=== PATIENT | female | born 1985 | race Caucasian/White ===

== ENCOUNTER 2024-12-21 09:37 | Emergency (ER) | payer BC, SELFPAY ==
[2024-12-21 09:46] VITALS: BP 116/71; PULSE 82; TEMP 36.7; O2SAT 99
--- NOTE | 2024-12-21 09:54 | CT_ITS ---
The [address] [address] Patient Name: DEEPIKA LANDRY MRN: [id number] date: 1985 Sex: F Assigned Patient Location: ED.MAIN Current Patient Location: ED.MAIN Accession/Order Number: [id number] Exam Date: 12/21/2024 10:40 Report Date: 12/21/2024 11:43 At the request of: UNIQUE CHAMBERS MD Procedure: CT lumbar spine wo con CT lumbar spine wo con 12/21/2024 10:51 AM History:Right lower back pain, pelvic pressure TECHNIQUE: Multi detector CT axial slices of the lumbar spine were obtained without IV contrast. Volumetric acquisition sagittal, coronal, and 3-D reconstructions were performed and reviewed on a separate workstation. CT was performed with one or more of the following dose reduction techniques: Automated exposure control, adjustment of the mA and/or kV according to patient size, or use of iterative reconstruction technique. COMPARISON: None FINDINGS: There is preservation of the vertebral body heights and intervertebral discs. There is a broad-based disc bulge at L5-S1 contributing to mild spinal canal stenosis. No fractures or dislocations are seen. The alignment of the lumbar spine is normal. The paraspinous soft tissues are within normal limits. The visualized lung parenchyma is unremarkable. The visualized abdominal and pelvic viscera is unremarkable. There is total left hip arthroplasty hardware. CT/CT lumbar spine wo con IMPRESSION: No acute bony abnormality or malalignment. There is a broad-based disc bulge at L5-S1 contributing to mild spinal canal stenosis. Impression dictated by: John Dick M.D. 12/21/2024 11:43 AM Dictation Location: [employer] Electronically authenticated by: [id number] Y Date: 12/21/2024 11:43
--- NOTE | 2024-12-21 09:54 | CT_ITS ---
The [address] [address] Patient Name: DEEPIKA LANDRY MRN: [id number] date: 1985 Sex: F Assigned Patient Location: ED.MAIN Current Patient Location: ED.MAIN Accession/Order Number: [id number] Exam Date: 12/21/2024 10:40 Report Date: 12/21/2024 11:47 At the request of: UNIQUE CHAMBERS MD Procedure: CT pelvis wo con CT pelvis wo con 12/21/2024 10:52 AM SIGNS AND SYMPTOMS: Low back pain and pelvic pressure TECHNIQUE: Multidetector ct axial images of the abdomen and pelvis were obtained without IV contrast. Multiplanar reformats were performed and reviewed to further define anatomy and possible pathology. CT was performed with one or more of the following dose reduction techniques: Automated exposure control, adjustment of the mA and/or kV according to patient size, or use of iterative reconstruction technique. COMPARISON: None. FINDINGS: Reproductive Organs: No pelvic masses. Ureters: Within normal limits. Bladder: Within normal limits. Bowel: Normal caliber. Mesenteric Lymph Nodes: No enlarged mesenteric lymph nodes. Peritoneum: No ascites or free air, no fluid collection. Vessels: Atherosclerotic changes within normal limits Retroperitoneum: Within normal limits. Abdominal Wall: Within normal limits. Bones: Limits total left hip arthroplasty hardware. The right hip is grossly intact. There is a broad-based disc bulge at L5-S1 contributing to mild spinal canal narrowing. CT/CT pelvis wo con IMPRESSION: No acute intra-abdominal pathology within the visualized pelvis. Mild degenerative changes are noted in the lower lumbar spine. There is uncomplicated total left hip are demonstrated. Impression dictated by: John Dick M.D. 12/21/2024 11:47 AM Dictation Location: [email or web address] Electronically authenticated by: [id number] Y Date: 12/21/2024 11:47
--- NOTE | 2024-12-21 09:56 | ED.GENADUL1 ---
HPI HPI - General Adult General Chief complaint: Back Pain/Injury Stated complaint: BACK PAIN Time Seen by Provider: 12/21/24 09:39 Source: patient Mode of arrival: Wheelchair Limitations: no limitations History of Present Illness HPI narrative: 39-year-old female presents for lower back pain. It is on the right lower part of her back and goes into her buttock but not below the buttock. No history of trauma. This began 2 days ago and she was at another hospital's emergency department yesterday. She states she had x-rays and blood and urine done and they were all negative and they sent her home with medication. He does not feel better and in fact he feels a bit worse. She points to the buttock area to indicate the area of most pain. 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 Related Data Previous Rx's ?Medication ?Instructions ?Recorded hydrocodone 5 mg-acetaminophen 325 1 tab PO Q6H PRN pain 5 days #20 12/21/24 mg tablet tabs prednisone 10 mg tablet See Rx Instructions .Route 12/21/24 .COMPLEX #30 tabs Allergies Allergy/AdvReac Type Severity Reaction Status Date / Time No Known Drug Allergies Allergy Verified 12/21/24 09:46 Opioid HPI Opioid Management Most Recent Opioid Data: Last Pain Scale 10 Today, 10:05 Last MAR Pain Assessment Today, 10:05 Review of Systems ROS Narrative A ten point review of systems is negative except as noted above. Exam Narrative Exam Narrative: Nurses note and vital signs reviewed General:The patient appears well and in no apparent distress.Patient is resting comfortably on cart. Skin:Warm, dry, no pallor noted.There is no rash noted. Head:Normocephalic, atraumatic Eye: Normal conjunctiva, no drainage Ears, Nose, Mouth, and Throat: oral mucosa is moist. Nares patent. Cardiovascular:Regular Rate and Rhythm Respiratory:Patient is in no distress, no accessory muscle use, lungs are clear to auscultation, no wheezing, rales or rhonchi Back: No bruise or rash or focal area of tenderness to palpation. She has no tenderness or swelling or erythema at the coccygeal area. GI: Soft and nontender Musculoskeletal: Lower extremities are not swollen Neurological: Awake and alert. Lower extremity motor strength intact Psychiatric:Cooperative Constitutional Vital Signs, click to edit/add: Last Vital Signs Temp 98.1 F 12/21/24 09:46 Pulse 82 12/21/24 09:46 Resp 16 12/21/24 09:46 BP 116/71 12/21/24 09:46 Pulse Ox 99 12/21/24 09:46 O2 Del Method Room Air 12/21/24 09:46 Course Vital Signs Vital signs: Vital Signs Temperature 98.1 F 12/21/24 09:46 Pulse Rate 82 12/21/24 09:46 Respiratory Rate 16 12/21/24 09:46 Blood Pressure 116/71 12/21/24 09:46 Pulse Oximetry 99 12/21/24 09:46 Oxygen Delivery Method Room Air 12/21/24 09:46 Temperature 98.1 F 12/21/24 09:46 Pulse Rate 82 12/21/24 09:46 Respiratory Rate 16 12/21/24 09:46 Blood Pressure 116/71 12/21/24 09:46 Pulse Oximetry 99 12/21/24 09:46 Oxygen Delivery Method Room Air 12/21/24 09:46 Medical Decision Making MDM Narrative Medical decision making narrative: CAT scans indicate bulging disc at L5-S1 level. She is referred to orthopedics and is provided a prescription for prednisone. She has been on [place] at home and additional [place] was prescribed for her. Treatment diagnosis and follow-up were discussed with the patient. Differential Diagnosis Differential Diagnosis: Muscle strain, bulging disc, herniated disc Lab Data Lab results reviewed: Yes I reviewed the patient's lab results Labs: Lab Results 12/21/24 Range/Units 10:00 WBC 9.4 (4.0-11.0) 10^3/uL RBC 4.78 (4.20-5.40) 10^6/uL Hgb 14.4 (12.0-16.0) g/dL Hct 42.4 (36.0-48.0) % MCV 88.7 (81.0-99.0) fL MCH 30.1 (26.7-34.0) pg MCHC 34.0 (29.9-35.2) g/dL RDW 12.2 (11.0-15.0) % Plt Count 231 (150-450) 10^3/uL MPV 10.2 (9.5-13.5) fL Neut % (Auto) 68.8 (43.0-75.0) % Lymph % (Auto) 23.8 (20.5-60.0) % [place] % (Auto) 6.7 (1.7-12.0) % Eos % (Auto) 0.3 L (0.9-7.0) % Baso % (Auto) 0.2 (0.2-2.0) % Neut # (Auto) 6.4 (1.4-6.5) 10^3/uL Lymph # (Auto) 2.2 (1.2-3.8) 10^3/uL [place] # (Auto) 0.6 (0.3-0.8) 10^3/uL Eos # (Auto) 0.0 (0.0-0.7) 10^3/uL Baso # (Auto) 0.0 (0.0-0.1) 10^3/uL Abs Immat Gran (auto) 0.02 (0.00-0.03) 10^3/uL Imm/Tot Granulo (auto) 0.2 (0.0-0.5) % Sodium 138 (136-145) mmol/L Potassium 3.8 (3.5-5.1) mmol/L Chloride 104 (98-107) mmol/L Carbon Dioxide 24.1 (21.0-32.0) mmol/L Anion Gap 13.7 BUN 8.0 (7.0-18.0) mg/dL Creatinine 0.73 (0.55-1.02) mg/dL Est GFR ( Amer) >60 (>=60 mL/min/1.73m^2) Est GFR (Non-Af Amer) >60 (>=60 mL/min/1.73m^2) BUN/Creatinine Ratio 11.0 Glucose 91 (74-106) mg/dL Calcium 8.9 (8.5-10.1) mg/dL Imaging Data CT lumbar and pelvis: Radiologist's impression: ITS Impressions Lumbar Spine CT 12/21/24 09:54 IMPRESSION: No acute bony abnormality or malalignment. There is a broad-based disc bulge at L5-S1 contributing to mild spinal canal stenosis. Impression dictated by: John Dick M.D. 12/21/2024 11:43 AM Dictation Location: [facility] Electronically authenticated by: [id number] Y Date: 12/21/2024 11:[address] 12/21/24 09:54 IMPRESSION: No acute intra-abdominal pathology within the visualized pelvis. Mild degenerative changes are noted in the lower lumbar spine. There is uncomplicated total left hip are demonstrated. Impression dictated by: John Dick M.D. 12/21/2024 11:47 AM Dictation Location: [employer] Electronically authenticated by: [id number] Y Date: 12/21/2024 11:47 Discharge Plan Discharge Chief Complaint: Back Pain/Injury Clinical Impression: Bulging lumbar disc Patient Disposition: Home, Self-Care Time of Disposition Decision: 11:58 Condition: Good Mode of Transportation: Private Vehicle Prescriptions / Home Meds: New hydrocodone-acetaminophen 5-325 mg tablet 1 tab PO Q6H PRN (Reason: pain) 5 Days Qty: 20 0RF prednisone 10 mg tablet See Rx Instructions .ROUTE .COMPLEX Qty: 30 0RF Rx Instructions: 4 by mouth daily for three days then 3 by mouth daily for three days then 2 by mouth daily for three days then 1 by mouth daily for three days Print Language: Slovenian Instructions: Lumbar Disc Herniation (ED), Lumbar Radiculopathy (ED) Referrals: PAM GARZA [Primary Care Provider, Family Practice] - 1 week LIANE JUDD [Referring] - 1 week
[2024-12-21] MEDS: KETOROLAC TROMETHAMINE 30 MG/ML VIAL IVP (10:05)
[2024-12-21] MEDS: ORPHENADRINE 60 MG/2 ML VIAL IV (10:05)
--- OUTSIDE RECORDS SUMMARY | 2024-12-21 10:16 | XMS_ITS | Encounter Summary ---
Author Organization [facility] Address [address] [place] [address] Care Team Providers Care Water Resource Consultant Name Role Phone Kezia Sethi Primary Care Provider Source Comments In the event this information is protected by the Federal Confidentiality of Alcohol and Drug AbusePatient Records regulations: The Federal rules restrict any use of the information to criminally investigate or prosecute any alcohol or drug abuse patient.[facility] Encounter Details Date Type Department Care Team (Late st Contact Info) Description 01/09/2022 Get Medical Advice Orthopaedics [address] [phone] [place] [address] [place] [address] [place], [place] [id number] FMLA Paperwork Social History Tobacco Use Types Packs/Day Years Used Date Smoking Tobacco: Never Assessed Comments Unknown Sex and Gender Information Value Date Recorded Sex Assigned at Not on file Legal Sex Female 12:19 PM EST Gender Identity Not on file Sexual Orientation Not on file documented as of this encounter Plan of Treatment Not on file documented as of this encounter Visit Diagnoses Not on filedocumented in this encounter Additional Health Concerns Infection Onset Date Last Indicated Resolved Time COVID-19 Rule-Out 04/04/2022 04/04/2022 04/05/2022 12:20 AM EST documented as of this encounter Care Teams Water Resource Consultant Relationship Specialty Start Date End Date Kezia Sethi [address] [place] [id number] PCP - General Family Medicine 04/23/15 documented as of this encounter
--- OUTSIDE RECORDS SUMMARY | 2024-12-21 10:16 | XMS_ITS | Encounter Summary ---
Author Organization [facility] Address [address] [place] [address] Care Team Providers Care Pulp Operator Name Role Phone Navdeep Kezia Whyte Primary Care Provider Source Comments In the event this information is protected by the Federal Confidentiality of Alcohol and Drug AbusePatient Records regulations: The Federal rules restrict any use of the information to criminally investigate or prosecute any alcohol or drug abuse patient.[facility] Encounter Details Date Type Department Care Team (Late st Contact Info) Description 04/03/2022 Patient Msg [facility] [address], [place] [phone] Provider, [facility] ACTION REQUIRED: Skin Preparation before your surgery Social History Tobacco Use Types Packs/Day Years Used Date Smoking Tobacco: Never Smokeless Tobacco: Never Alcohol Use Standard Drinks/Week Comments Yes 0 (1 standard drink = 0.6 oz pure alcohol) May have a drink once per month Area Deprivation Index Answer Date Mamadou rded National Score (1-100), lower number is lower ri sk 47 03/21/2022 State Score (1-10), lower number is lower risk N ot on file 03/21/2022 Data from: https://www.neighborhoodatlas.medicine.[facility].edu/. Last address used for calculation [address] 03/21/2022 Comments No Sex and Gender Information Value Date Recorded [...] documented as of this encounter Care Teams Pulp Operator Relationship Specialty Start Date End Date Kezia Sethi [address] [place] [phone] PCP - General Family Medicine 04/23/15 documented as of this encounter
--- OUTSIDE RECORDS SUMMARY | 2024-12-21 10:16 | XMS_ITS | Clinical Summary ---
Author Organization [facility] Healthcare Address [address] [place] [address] Care Team Providers Care Front Desk Host Name Role Phone Navdeep Kezia Davis DO Primary Care Provider [phone]- [phone] Allergies No known active allergies Medications fluticasone (Flonase) 50 MCG/ACT nasal spray Administer 1 spray into each nostril 1 (one) time each day at the same time. 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 months, followed by a year and a half of casting -Now with increasing pain and radiographic evidence of degenerative changes -Scheduled for the above procedure Palpitations 04/01/2018 Seasonal allergies 04/01/2018 Encounters Date Type Department Care Team Description 11/21/2024 9:50 AM EDT Office Visit [facility] [address] [place] [phone] Dilia Carvajal PA Capillary angioma (Primary Dx); Multiple benign melanocytic nevi of both upper extremities, both lower extremities, and trunk; Seborrheic keratosis; Lentigo simplex; Actinic keratosis 11/21/2024 Bamboo flowsheet [facility] [address] [place] [phone] Dilia Carvajal PA 11/21/2024 Travel 11/20/2024 Travel 10/22/2024 10:30 AM EDT Ancillary Procedure [facility] [address] [place] [phone] Follow-up examination of abnormal mammogram 10/22/2024 10:00 AM EDT Ancillary Procedure [facility] [address] [place] [phone] Follow-up examination of abnormal mammogram 10/22/2024 Travel 10/21/2024 Travel from Last 3 Months Immunizations Immunization Administration Dates Next Due Influenza, injectable, quadrivalent, preservativ e free 01/07/2021,01/24/2020 Novel [id number], preservative-free 01/01 Family History Medical History Relation Name Comments Breast cancer Maternal Grandmother Ally Breast cancer Mother Tiffany Breast cancer Other Relation Name Status Comments Brother 1 brother Daughter 1 daughter Father Maternal Grandmother Ally Mother Tiffany Alive Other Maternal great aunt Son 1 son Social History Tobacco Use Types Packs/Day Years Used Date Smoking Tobacco: Never Smokeless Tobacco: Never Tobacco Cessation:Counseling Given: Not Answered Comments:Tobacco non-user: current non-smoker Alcohol Use Standard Drinks/Week Comments Yes 0 (1 standard drink = 0.6 oz pure alcohol) Only socially - not even once a month AUDIT-C Answer Date Recorded Q1: How often do you have a drink containing alc ohol? Monthly or less 01/21/2024 Q2: How many drinks containi ng alcohol do you have on a typical day when you are drinking? 1 or 2 01/21/2024 Q3: How often do you have si x or more drinks on one occasion? Never 01/21/2024 PHQ-2 Answer Date Recorded Patient Health Questionnaire-2 Score 0 01/21/2024 Comments No Sex and Gender Information Value Date Recorded Sex Assigned at Not on file Legal Sex Female 7:10 PM EDT Gender Identity Not on file Sexual Orientation Not on file Last Filed Vital Signs Vital Sign Reading Time Taken Comments Blood Pressure 132/72 01/21/2024 3:54 PM EST Pulse - - Temperature - - Respiratory Rate - - Oxygen Saturation - - Inhaled Oxygen Concentration - - Weight 77.6 kg (171 lb) 01/21/2024 3:54 PM EST Height 162.6 cm (5' 4 ) 01/21/2024 3:54 PM EST Body Mass Index 29.35 01/21/2024 3:54 PM EST Plan of Treatment Upcoming Encounters Date Type Department Care Team (Late st Contact Info) Description 11/23/2025 8:40 AM EDT Office Visit [facility] [address] [place] [phone] Dilia Carvajal PA [address] [place] [phone] Health Maintenance Due Date Last Done Comments Influenza Vaccine (#1) 2024 01/07/2021, 2019 Pap Smear 01/10/2025 01/10/2022 Mammogram 10/22/2025 10/22/2024, 04/06, 04/21/2024, Additional history exists Cervical Cancer Screening 01/20/2029 HPV/Cotest 01/20/2029 01/21/2024, 01/03, 01/05/2021, Additional history exists Procedures Procedure Name Priority Date/Time Associated Diagnosis Comments CRYOTHERAPY SKIN LESION Routine 11/21/2024 9:56 AM EDT Actinic keratosis BI US BREAST LIMITED LEFT Routine 10/22/2024 10:28 AM EDT Follow-up examination of abnormal mammogram BI MAMMOGRAM DIAGNOSTIC TOMOSYNTHESIS LEFT Routine 10/22/2024 10:16 AM EDT Follow-up examination of abnormal mammogram IGP, APT HPV,RFX 16/18,45 Routine 01/21/2024 12:00 AM EST Screening for malignant neoplasm of cervix THINPREP TIS PAP AND HPV MRNA E6/E7 REFLEX HPV 16,18/45 ([id number]) Routine 01/10/2022 from Last 3 Months or Most Recently Relevant to Health Maintenance Results * Cryotherapy, skin lesion (11/21/2024 9:56 AM EDT) us Dilia [facility] PROCEDURE ORDERABLES Kiana l Result * Left breast US limited (10/22/2024 10:28 AM EDT) Anatomical Region Laterality Modality Breast Left Ultrasound 10/22/2024 3:46 PM EDT Impressions 10/22/2024 3:51 PM EDT Impression: Left breast ultrasound study demonstrates a likely benign process at the 12 o'clock position such as cluster of cysts, complex cyst or fibroadenoma. No significant change when compared to prior ultrasound study as described. No obvious neoplasm. When correlating all studies no convincing evidence of neoplasm. BI-RADS 2 ELECTRONICALLY SIGNED BY: Bandar Scott M.D. Narrative 10/22/2024 3:51 PM EDT Examination: BI US BREAST LIMITED LEFT Reason for Study: follow up exam of abnormal mammogram Comparison: Left breast ultrasound study dated 04/24/2024, diagnostic mammogram study of the left breast dated 04/24/2024 and diagnostic mammogram study of the left breast dated 10/22/2024. Technique: Left breast ultrasound study was performed. Images were obtained from the 10:00 to the 2 o'clock position include area of interest. Findings: At the 12 o'clock position approximately 3.5 cm from the nipple there is an area of decreased echogenicity with linear and ill-defined internal echoes measuring 1.1 x 0.6 x 0.3 cm. No obvious internal vascularity or posterior shadowing. Findings most likely represent a benign process such as a cluster of cysts, complex cyst or fibroadenoma. When reviewing the cine clip of the prior ultrasound study the present finding appears to be similar without significant change. No obvious solid vascular mass to suggest neoplasm. When correlating all studies no convincing evidence of neoplasm. No obvious abnormal calcifications or vascularity. No obvious ductal dilatation. Ochoa Saravia DO IM US PROCEDURES Final Resu lt * Left diagnostic mammogram with tomosynthesis (10/22/2024 10:16 AM EDT) Anatomical Region Laterality Modality Breast Left Mammography 10/22/2024 3:30 PM EDT Impressions 10/22/2024 3:51 PM EDT Previously noted small asymmetric density in the left breast is less discretely identified and only faintly suggested. Ultrasound study demonstrates a likely benign process at the 12 o'clock position similar to the prior ultrasound study when allowing for differences in technique. No obvious neoplasm. When correlating all studies no convincing evidence of neoplasm. BIRADS 2 - Benign Findings DENSITY: The breasts are heterogeneously dense, which may obscure small masses. FOLLOW-UP: Routine Screening Mammogram Board Certified Radiologists. Accredited by the ACR and FDA. MAMMOGRAPHY IS VERY IMPORTANT TO YOUR HEALTH. THE CITIZEN [place] [employer] GUIDELINES RECOMMEND THAT WOMEN 40 YEARS OF AGE AND OLDER SHOULD HAVE A MAMMOGRAM EVERY YEAR. A REMINDER LETTER WILL BE SENT AT THE APPROPRIATE TIME. ELECTRONICALLY SIGNED BY: Bandar Scott M.D. Narrative 10/22/2024 3:51 PM EDT EXAMINATION: BI MAMMOGRAM DIAGNOSTIC TOMOSYNTHESIS LEFT CLINICAL HISTORY: follow up exam of abnormal mammogram TECHNIQUE: Diagnostic digital mammogram study of the left breast was performed with 2D and 3D tomosynthesis imaging. Study was compared to the diagnostic mammogram study of the left breast dated 04/24/2024, ultrasound study of the left breast dated 04/24/2024 and left breast ultrasound study dated 10/22/2024. FINDINGS: Standard views of the left breast were obtained as well as coned-down compression views and true lateral view. Previously noted 8 x 4 mm asymmetric density in the mid, superior aspect of the left breast is less discretely identified and only faintly suggested. Ultrasound study demonstrates a likely benign process such as clustered microcysts, complex cyst or possible intramammary lymph node at the 12 o'clock position similar to the prior study when allowing for differences in technique. No convincing evidence of dominant spiculated mass, grouped microcalcifications or skin thickening which would be suggestive of malignancy. When correlating all studies no convincing evidence of neoplasm. Partially visualized axillary lymph nodes appear grossly unremarkable. Procedure Note Bandar Scott MD - 10/22/2024 EXAMINATION: BI MAMMOGRAM DIAGNOSTIC TOMOSYNTHESIS LEFT CLINICAL HISTORY: follow up exam of abnormal mammogram TECHNIQUE: Diagnostic digital mammogram study of the left breast wasperformed with 2D and 3D tomosynthesis imaging. Study was compared to thediagnostic mammogram study of the left breast dated 04/24/2024, ultrasoundstudy of the left breast dated 04/24/2024 and left breast ultrasound studydated 10/22/2024. FINDINGS: Standard views of the left breast were obtained as well asconed-down compression views and true lateral view. Previously noted 8 x 4mm asymmetric density in the mid, superior aspect of the left breast isless discretely identified and only faintly suggested. Ultrasound studydemonstrates a likely benign process such as clustered microcysts, complexcyst or possible intramammary lymph node at the 12 o'clock positionsimilar to the prior study when allowing for differences in technique. No convincing evidence of dominant spiculated mass, groupedmicrocalcifications or skin thickening which would be suggestive ofmalignancy. When correlating all studies no convincing evidence ofneoplasm. Partially visualized axillary lymph nodes appear grosslyunremarkable. IMPRESSION: Previously noted small asymmetric density in the left breast is lessdiscretely identified and only faintly suggested. Ultrasound studydemonstrates a likely benign process at the 12 o'clock position similar tothe prior ultrasound study when allowing for differences in technique. No obvious neoplasm. When correlating all studies no convincing evidenceof neoplasm. BIRADS 2 - Benign Findings DENSITY: The breasts are heterogeneously dense, which may obscure smallmasses. FOLLOW-UP: Routine Screening Mammogram Board Certified Radiologists. Accredited by the ACR and FDA. MAMMOGRAPHY IS VERY IMPORTANT TO YOUR HEALTH. [place] [employer] RECOMMEND THAT WOMEN 40 YEARS OF AGE AND OLDER SHOULD HAVE AMAMMOGRAM EVERY YEAR. A REMINDER LETTER WILL BE SENT AT THE APPROPRIATE TIME. ELECTRONICALLY SIGNED BY: Bandar Scott M.D. Ochoa Saravia DO IMG BI PROCEDURES Final Resu lt * IGP, APT HPV,RFX 16/18,45 (01/21/2024 12:00 AM EST) Diagnosis: Comment [facility] Comment: NEGATIVE FOR INTRAEPITHELIAL LESION OR MALIGNANCY. REACTIVE CELLULAR CHANGES AND/OR REPAIR ARE PRESENT. Specimen Adequacy: Comment [facility] Comment: Satisfactory for evaluation. Endocervical and/or squamous metaplastic cells (endocervical component) are present. Clinician Provided ICD10: Comment [facility] Comment:Z12.4 Performed By: Comment [facility] Comment:Yoel Sosa totechnologist Electronically Signed By: Comment [facility] Comment:Eladio Nova MD, Pa thologist Cyto Comments . [facility] Note: Comment [facility] Comment: The Pap smear is a screening test designed to aid in the detection of premalignant and malignant conditions of the uterine cervix. It is not a diagnostic procedure and should not be used as the sole means of detecting cervical cancer. Both false-positive and false-negative reports do occur. Test Methodology: Comment [facility] Comment: This liquid based ThinPrep(R) pap test was screened with the use of an image guided system. HPV Aptima Negative Negative [facility] Comment: This nucleic acid amplification test detects fourteen high-risk HPV types (16,18,31,33,35,39,45,51,52,56,58,59,66,68) without differentiation. Swab 01/21/2024 01/22/2024 Narrative [facility] - 01/30/2024 3:07 PM EST Performed at: - [facility] [id number] Die Cleaner: Sunshine Louise MD, Phone: [phone] Performed at: 02 - [facility] [id number] Die Cleaner: Sunshine Louise MD, Phone: [phone] Specimen Comment: [id number] Specimen Comment: No. of containers..01 ThinPrep Vial us Ochoa Saravia DO LAB BLOOD ORDERABLES Final R esult [facility] * THINPREP TIS PAP AND HPV MRNA E6/E7 REFLEX HPV 16,18/45 ([id number]) (01/10/2022) CLINICAL INFORMATION: 2013 [facility] LMP: 2,014 [facility] PREV. PAP: NEG [facility] PREV. BX: N/A [facility] SOURCE: Endocervix [facility] STATEMENT OF ADEQUACY: SEE COMMENT [facility] Comment: Satisfactory for evaluation. Endocervical/transformation zone component present. INTERPRETATION/R ESULT: Negative for intraepithelial lesion or malignancy. [facility] COMMENT: This Pap test has been evaluated with computer assisted technology. [facility] DIVERSIONAL THERAPIST'S ASSISTANT : SEE COMMENT [facility] Comment: CHARLEEN CONDE(ASCP) CT Screening Location: [place] [address]. COMMENT SEE COMMENT [facility] Comment: EXPLANATORY NOTE: The Pap is a screening test for cervical cancer. It is not a diagnostic test and is subject to false negative and false positive results. It is most reliable when a satisfactory sample, regularly obtained, is submitted with relevant clinical findings and history, and when the Pap result is evaluated along with historic and current clinical information. HPV MRNA E6/E7 Not Detected Not Detected [facility] Comment: Methodology: Workers Compensation Consultant-Mediated Amplification This assay detects E6/E7 viral messenger RNA (mRNA) from 14 high-risk HPV types (16,18,31,33,35,39,45,51,52,56,58,59,66,68). Cervical sources are required for HPV testing. If a vaginal source from a patient who has had a total hysterectomy with removal of cervix was submitted, please contact the testing laboratory for alternative testing options. For additional information, please refer to http://education.[employer].Rounds/faq/TIZ584w5 (This link if provided for information/ educational purposes only.) 01/10/2022 Ochoa Saravia DO [facility] Final Result [facility] from Last 3 Months or Most Recently Relevant to Health Maintenance Insurance [facility] Care Teams Front Desk Host Relationship Specialty Start Date End Date Kezia Sethi DO [address] [address] PCP - General Family Medicine 07/11/22
--- OUTSIDE RECORDS SUMMARY | 2024-12-21 10:16 | XMS_ITS | Encounter Summary ---
Author Organization [facility] Address [address] [place] [address] Care Team Providers Care Skoog Patching Machine Operator Name Role Phone Kezia Sethi Primary Care Provider Source Comments In the event this information is protected by the Federal Confidentiality of Alcohol and Drug AbusePatient Records regulations: The Federal rules restrict any use of the information to criminally investigate or prosecute any alcohol or drug abuse patient.[facility] Encounter Details Date Type Department Care Team (Late st Contact Info) Description 03/16/2022 Get Medical Adv[facility] Orthopaedics [address] [address] [place] [address] [place], [place] [phone] Pre surgical appointment Social History Tobacco Use Types Packs/Day Years [...] documented as of this encounter Care Teams Skoog Patching Machine Operator Relationship Specialty Start Date End Date Kezia Sethi [address] [place] [phone] PCP - General Family Medicine 04/23/15 documented as of this encounter
--- OUTSIDE RECORDS SUMMARY | 2024-12-21 10:16 | XMS_ITS | Encounter Summary ---
Author Organization [facility] Address [address] [place] [address] Care Team Providers Care Elementary School Librarian Name Role Phone Navdeep Kezia Whyte Primary Care Provider Source Comments In the event this information is protected by the Federal Confidentiality of Alcohol and Drug AbusePatient Records regulations: The Federal rules restrict any use of the information to criminally investigate or prosecute any alcohol or drug abuse patient.[facility] Encounter Details Date Type Department Care Team (Late st Contact Info) Description 03/28/2022 Patient Msg Admitting [address] [place] [id number] Provider, [facility] SURGICAL REGISTRATION APT Social History Tobacco Use Types Packs/Day Years Used Date Smoking Tobacco: Never Assessed Area Deprivation Index Answer Date Mamadou rded National Score (1-100), lower number is lower ri sk 47 03/21/2022 State Score (1-10), lower number is lower risk N ot on file 03/21/2022 Data from: https://www.neighborhoodatlas.medicine.[facility].edu/. Last address used for calculation [address] 03/21/2022 Comments Unknown Sex and Gender Information Value [...] documented as of this encounter Care Teams Elementary School Librarian Relationship Specialty Start Date End Date Kezia Sethi [address] [place] [address] PCP - General Family Medicine 04/23/15 documented as of this encounter
--- OUTSIDE RECORDS SUMMARY | 2024-12-21 10:16 | XMS_ITS | Encounter Summary ---
Author Organization [facility] Address [address] [place] [address] Care Team Providers Care Cardiothoracic Icu Rn Name Role Phone Kezia Sethi Primary Care Provider Source Comments In the event this information is protected by the Federal Confidentiality of Alcohol and Drug AbusePatient Records regulations: The Federal rules restrict any use of the information to criminally investigate or prosecute any alcohol or drug abuse patient.[facility] Encounter Details Date Type Department Care Team (Late st Contact Info) Description 04/07/2022 Get Medical Advice Orthopaedics [address] [address] Juanpablo Garza MD [address] [facility] [address] [place], [place] [phone] Work note for Social History Tobacco Use Types Packs/Day Years [...] N ot on file 03/21/2022 Data from: https://www.neighborhoodatlas.medicine.[facility]/. Last address used for calculation [address] 03/21/2022 Comments No Sex and Gender Information Value Date Recorded Sex Assigned at Not on file Legal Sex Female 12:19 PM EST Gender Identity Not on file Sexual Orientation Not on file documented as of this encounter Plan of Treatment Not on file documented as of this encounter Visit Diagnoses Not on filedocumented in this encounter Care Teams Cardiothoracic Icu Rn Relationship Specialty Start Date End Date Kezia Sethi [address] [place] [phone] PCP - General Family Medicine 04/23/15 documented as of this encounter
--- OUTSIDE RECORDS SUMMARY | 2024-12-21 10:16 | XMS_ITS | Encounter Summary ---
Author Organization [facility] Address [address] [place] [address] Care Team Providers Care Airplane Pilot Chief Name Role Phone Kezia Sethi Primary Care Provider Source Comments In the event this information is protected by the Federal Confidentiality of Alcohol and Drug AbusePatient Records regulations: The Federal rules restrict any use of the information to criminally investigate or prosecute any alcohol or drug abuse patient.[facility] Encounter Details Date Type Department Care Team (Late st Contact Info) Description 08/02/2022 Get Medical Advice Orthopaedics [address] [address] Juanpablo Garza MD 95[address] [facility] [address] [place], [place] [phone] Antibiotic/teeth cleaning Social History Tobacco Use Types Packs/Day Years [...] N ot on file 03/21/2022 Data from: https://www.neighborhoodatlas.medicine.[facility]/. Last address used for calculation [address] 03/21/2022 Comments No Sex and Gender Information Value Date Recorded Sex Assigned at Not on file Legal Sex Female 12:19 PM EST Gender Identity Not on file Sexual Orientation Not on file documented as of this encounter Plan of Treatment Not on file documented as of this encounter Visit Diagnoses Not on filedocumented in this encounter Care Teams Airplane Pilot Chief Relationship Specialty Start Date End Date Kezia Sethi [address] [place] [phone] PCP - General Family Medicine 04/23/15 documented as of this encounter
--- OUTSIDE RECORDS SUMMARY | 2024-12-21 10:16 | XMS_ITS | Clinical Summary ---
Author Organization [facility] Address [address] [place] [address] Care Team Providers Care Pile Fabric Knitter Name Role Phone Unavailable Primary Care Provider Unavailabl e Social History Tobacco Use Types Packs/Day Years Used Date Smoking Tobacco: Never Assessed Comments Unknown Sex and Gender Information Value Date Recorded Sex Assigned at Not on file Legal Sex Female 12:11 AM EDT Gender Identity Not on file Sexual Orientation Not on file Last Filed Vital Signs Vital Sign Reading Time Taken Comments Blood Pressure 118/78 04/24/2018 9:46 AM EST Pulse 60 04/01/2018 11:26 AM EST Temperature - - Respiratory Rate - - Oxygen Saturation 99% 04/24/2018 9:46 AM EST Inhaled Oxygen Concentration - - Weight 74.4 kg (164 lb) 04/24/2018 9:44 AM EST Height 162.6 cm (5' 4 ) 04/24/2018 9:41 AM EST Body Mass Index 28.15 04/24/2018 9:41 AM EST Plan of Treatment Not on file
--- OUTSIDE RECORDS SUMMARY | 2024-12-21 10:16 | XMS_ITS | Encounter Summary ---
Author Organization [facility] Address [address] [place] [address] Care Team Providers Care Die Technician Name Role Phone Kezia Sethi Primary Care Provider Source Comments In the event this information is protected by the Federal Confidentiality of Alcohol and Drug AbusePatient Records regulations: The Federal rules restrict any use of the information to criminally investigate or prosecute any alcohol or drug abuse patient.[facility] Encounter Details Date Type Department Care Team (Late st Contact Info) Description 04/03/2022 Get Medical Advice Orthopaedics [address] [address] Juanpablo Garza MD [address]00 [facility] [address] [place], [place] [phone] Presurgical wipes Social History Tobacco Use Types Packs/Day Years [...] N ot on file 03/21/2022 Data from: https://www.neighborhoodatlas.medicine.[facility]/. Last address used for calculation [address] 03/21/2022 Comments No Sex and Gender [...] documented as of this encounter Care Teams Die Technician Relationship Specialty Start Date End Date Kezia Sethi [address] [place] [address] PCP - General Family Medicine 04/23/15 documented as of this encounter
--- OUTSIDE RECORDS SUMMARY | 2024-12-21 10:16 | XMS_ITS | Encounter Summary ---
Author Organization [facility] Address [address] [place] [address] Care Team Providers Care Science Intern Name Role Phone Kezia Sethi Primary Care Provider Source Comments In the event this information is protected by the Federal Confidentiality of Alcohol and Drug AbusePatient Records regulations: The Federal rules restrict any use of the information to criminally investigate or prosecute any alcohol or drug abuse patient.[facility] Encounter Details Date Type Department Care Team (Late st Contact Info) Description 04/21/2022 Get Medical Advice Orthopaedics [address] [address] Juanpablo Garza MD [address] [facility] [address] [place], [place] [id number] Physical Therapy Social History Tobacco Use Types Packs/Day Years [...] N ot on file 03/21/2022 Data from: https://www.neighborhoodatlas.medicine.[facility].edu/. Last address used for calculation [address] 03/21/2022 Comments No Sex and Gender Information Value Date Recorded Sex Assigned at Not on file Legal Sex Female 12:19 PM EST Gender Identity Not on file Sexual Orientation Not on file documented as of this encounter Plan of Treatment Not on file documented as of this encounter Visit Diagnoses Not on filedocumented in this encounter Care Teams Science Intern Relationship Specialty Start Date End Date Kezia Sethi [address] [place] [phone] PCP - General Family Medicine 04/23/15 documented as of this encounter
--- OUTSIDE RECORDS SUMMARY | 2024-12-21 10:16 | XMS_ITS | Encounter Summary ---
Author Organization [facility] Address [address] [place] [address] Care Team Providers Care Venetian Blind Installer Name Role Phone Kezia Sethi DO Unavailable [phone] Kezia Sethi DO Primary Care Provider [phone] Encounter Details Date Type Department Care Team (Late st Contact Info) Description 03/13/2024 Abstract [facility] [place] [facility] [address] [facility] [address] [place] [phone] Kezia Sethi DO [address] [facility] [address] [place] [address] Social History Tobacco Use Types Packs/Day Years Used Date Smoking Tobacco: Never Smokeless Tobacco: Never Comments:Tobacco non-user: c urrent non-smoker Alcohol Use Standard Drinks/Week Comments Yes [...] as of this encounter Plan of Treatment Upcoming Encounters Date Type Department Care Team (Late st Contact Info) Description 11/23/2025 8:40 AM EDT Office Visit [facility] [place] [facility] [address] [place] [address] Dilia Carvajal PA [address] [place] [phone] documented as of this encounter Visit Diagnoses Not on filedocumented in this encounter Care Teams Venetian Blind Installer Relationship Specialty Start Date End Date Kezia Sethi DO [address] [place] [address] PCP - David Parker 01/03/21 Kezia Sethi DO [address] [place] [address] PCP - General Family Medicine 07/11/22 documented as of this encounter
--- OUTSIDE RECORDS SUMMARY | 2024-12-21 10:16 | XMS_ITS | Encounter Summary ---
Author Organization [facility] Address [address] [place] [address] Care Team Providers Care Toy Maker Name Role Phone Kezia Sethi DO Unavailable [phone] Kezia Sethi DO Primary Care Provider [phone]- [phone] Encounter Details Date Type Department Care Team (Late st Contact Info) Description 08/09/2022 [facility] [address] [place] [address] Kezia Sethi DO [address] [place] [address] Social History Tobacco Use Types Packs/Day Years Used Date Smoking Tobacco: Never Tobacco Cessation:Counseling Given: Not Answered Comments:Tobacco non-user: current non-smoker Alcohol Use Standard Drinks/Week Comments Yes 0 (1 standard drink = 0.6 oz pure alcohol) 1-2 drinks less than monthly in the past year, Caffeine intake: 1-2 cups per day coffee Comments Unknown Sex and Gender Information Value Date Recorded Sex Assigned at Not on file Legal Sex Female 7:10 PM EDT Gender Identity Not on file Sexual Orientation Not on file documented as of this encounter Plan of Treatment Upcoming Encounters Date Type Department Care Team (Late st Contact Info) Description 11/23/2025 8:40 AM EDT Office Visit [facility] [address] [place] [address] Dilia Carvajal PA [address] [place] [address] documented as of this encounter Visit Diagnoses Not on filedocumented in this encounter Care Teams Toy Maker Relationship Specialty Start Date End Date Kezia Sethi DO [address] [facility] [address] [place] [address] PCP - K[employer] 01/03/21 Kezia Sethi DO [address] [address] PCP - General Family Medicine 07/11/22 documented as of this encounter
--- OUTSIDE RECORDS SUMMARY | 2024-12-21 10:16 | XMS_ITS | Clinical Summary ---
Author Organization [facility] Address [address] [place] [address] Care Team Providers Care Beer Brewer Name Role Phone Navdeep Kezia Whyte Primary Care Provider Allergies No known active allergies Medications acetaminophen (TYLENOL) 500 mg tablet Take 2 tablets by mouth every 8 hours. 60 tablet 04/06/2022 11:09 AM EST 3 Active aspirin, enteric coated (ASPIRIN, ENTERIC COATED) 81 mg EC tablet Take 1 tablet by mouth twice daily for 28 days. 56 tablet 04/06/2022 11:09 AM EST 3 Active ondansetron (ZOFRAN) 4 mg tablet Take 1 tablet by mouth every 6 hours as needed for nausea/vomitin g. 30 tablet 04/06/2022 11:09 AM EST 3 Active docusate sodium (COLACE) 100 mg capsule Take 1 capsule by mouth twice daily. Take for as long as you are taking pain medication, stop if you develop diarrhea 20 capsule 04/06/2022 11:09 AM EST 3 Active amoxicillin (AMOXIL) 500 mg capsule Take 6 capsules by mouth one hour before dental procedure and 2 capsules 6 hours after the procedure. 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, followed by a year and a half of casting -Now with increasing pain and radiographic evidence of degenerative changes -Scheduled for the above procedure Immunizations Immunization Administration Dates Next Due influenza (IIV4) vaccine, ag e 6 mo - 64 yr, quadrivalent, PF (AFLURIA, FLUARIX, FLULAVAL, FLUZONE) 01/07/2021,01/24/2020 novel influenza ([id number]) vaccine, PF 01/01/2009 Family History Medical History Relation Comments Breast Cancer Maternal Grandmother dx 70's Breast Cancer Mother DCIS dx 54 Breast Cancer Other maternal great a unt dx 60's Relation Status Comments Maternal Grandmother Mother Other Social History Tobacco Use Types Packs/Day Years Used Date Smoking Tobacco: Never Smokeless Tobacco: Never Tobacco Cessation:Counseling Given: Not Answered Alcohol Use Standard Drinks/Week Comments Yes 0 (1 standard drink = 0.6 oz pure alcohol) May have a drink once per month Area Deprivation Index Answer Date Mamadou rded National Score (1-100), lower number is lower ri sk 47 03/21/2022 State Score (1-10), lower number is lower risk N ot on file 03/21/2022 Data from: https://www.neighborhoodatlas.medicine.[facility].edu/. Last address used for calculation [address] 03/21/2022 Comments No Sex and Gender Information Value Date Recorded Sex Assigned at Not on file Legal Sex Female 12:19 PM EST Gender Identity Not on file Sexual Orientation Not on file Last Filed Vital Signs Vital Sign Reading Time Taken Comments Blood Pressure 92/41 04/06/2022 7:23 AM EST Pulse 87 04/06/2022 7:23 AM EST Temperature 36.9 C (98.4 F) 04/06/2022 7:23 AM EST Respiratory Rate 20 04/06/2022 10:30 AM EST Oxygen Saturation 95% 04/06/2022 7:23 AM EST Inhaled Oxygen Concentration - - Weight 71.9 kg (158 lb 8 oz) 04/03/2022 10:26 AM EST Height 162.6 cm (5' 4 ) 04/03/2022 10:26 AM EST Body Mass Index 27.21 04/03/2022 10:26 AM EST Plan of Treatment Health Maintenance Due Date Last Done Comments Anxiety Screening 2001 Depression Screening 2001 HIV Screening 2001 Hepatitis C Screening 2001 DTaP,Tdap,Td Vaccine (1 - Tdap) 2002 Hepatitis B Vaccine (1 of 3 - 19+ 3-dose series) 2002 Cervical Cancer Screening 2004 HPV Vaccine (1 - 3-dose SCDM series) 2010 Mammogram Screening 2023 Covid-19 Vaccine (3 - 2024-2 6 season) 2024 01/07/2021, 05/13/2020 Influenza Vaccine (#1) 2024 , 01/24/2020, 01/01/2009 Medical Devices Implanted Type Area Automobile Mechanic Apprentice Device Identifier Shelf Expiration Date Model / Serial / Lot Trident Solidback Acetabular Shell Size 48 Mm D Implanted:Qty: 1 on 04/04/2022 by Juanpablo Garza MD at [facility] Implant Left: Bone - Hip OTHER [id number] / / [id number] Description:THIS implant use d, per MM. mf Trident X3 Polyethylene Insert 0deg 32mm Sz D Implanted:Qty: 1 on 04/04/2022 at [facility] Joint - Hip Left: Bone - Hip [employer] 01/01/2027 [id number] / / [id number] Stem Citation 12mm 132d 3 40mm Offset Purefix Tmzf 125mm 28mm Femoral Hip - [id number] Implanted:Qty: 1 on 04/04/2022 at [facility] Joint - Hip Left: Bone - Hip [employer] 11/07/2026 [id number] / / [id number] Head V40 32mm +4mm Offset Taper Biolox Delta Femoral Hip - [id number] Implanted:Qty: 1 on 04/04/2022 at [facility] Joint - Hip Left: Bone - Hip [employer] 12/22/2026 [id number] / / [id number] Insurance BLUE ACCESS PPO Care Teams Beer Brewer Relationship Specialty Start Date End Date Kezia Sethi [address] [place] [address] PCP - General Family Medicine 04/23/15
[2024-12-21 10:23] LABS: Hematocrit 42.4 % (36.0-48.0); Hemoglobin 14.4 g/dL (12.0-16.0); Immature Granulocytes Abs Auto 0.02 10^3/uL (0.00-0.03); Immature Granulocytes Pct Auto 0.2 % (0.0-0.5); Lymphocytes Absolute Auto 2.2 10^3/uL (1.2-3.8); Mean Corpuscular HGB Conc 34.0 g/dL (29.9-35.2); Mean Corpuscular Hemoglobin 30.1 pg (26.7-34.0); Mean Corpuscular Volume 88.7 fL (81.0-99.0); Platelet Count 231 10^3/uL (150-450); Red Blood Count 4.78 10^6/uL (4.20-5.40); White Blood Count 9.4 10^3/uL (4.0-11.0)
[2024-12-21 10:32] LABS: Anion Gap 13.7; Blood Urea Nitrogen 8.0 mg/dL (7.0-18.0); Calcium 8.9 mg/dL (8.5-10.1); Carbon Dioxide 24.1 mmol/L (21.0-32.0); Chloride 104 mmol/L (98-107); Estimated GFR (African America >60 (>=60 mL/min/1.73m^2); Estimated GFR (Non-African Ame >60 (>=60 mL/min/1.73m^2); Glucose 91 mg/dL (74-106); Potassium 3.8 mmol/L (3.5-5.1); Sodium 138 mmol/L (136-145)
[2024-12-21 11:58] LABS: Glucose Urine UA NEGATIVE (NEGATIVE)
[2024-12-21 12:10] VITALS: BP 112/73; PULSE 88; O2SAT 99
[2024-12-21 12:19] LABS: Cast Seen? NONE SEEN #/LPF (NONE SEEN); Crystals Seen? None Seen #/HPF (None Seen); Urine Culture Indicated YES-FRMC
== END 2024-12-21 12:11 | disposition home or self-care (01) ==
PROVIDERS: Emergency Provider Emergency Medicine; Family Provider Family Medicine; PCP Family Medicine
DX: M51.379 Other intervertebral disc degeneration, lumbosacral region without mention of lumbar back pain or lower extremity pain (principal); Z96.642 Presence of left artificial hip joint
CPT/HCPCS: 36415; 72131; 72192; 76376; 80048; 81001; 85025; 87086; 96374; 96375; 99285; J1885; J2360